=== PATIENT | male | born 2000 | race Caucasian/White ===

== ENCOUNTER 2023-12-02 21:54 | Emergency (ER) | payer SELFPAY ==
[2023-12-02 22:02] VITALS: TEMP 98.3; BMI 25.9
[2023-12-02] MEDS: ACETAMINOPHEN 1000 MG/100 ML BAG IVPB ONE (22:37)
[2023-12-02 23:30] VITALS: BP 122/79; PULSE 75; RESP 18
== END 2023-12-02 23:30 | disposition home or self-care (01) ==
LOC: JER 21:54
DX: R00.2 Palpitations (principal); R42 Dizziness and giddiness; R06.02 Shortness of breath
CPT/HCPCS: 71046-TC-FY; 93005; 93010; 99285-25